=== PATIENT | female | born 1945 | race Caucasian/White ===

== ENCOUNTER 2016-10-22 08:46 | Outpatient (CLI) | payer MEDICARE | END 2016-10-22 08:47 | disposition home or self-care (01) | DX: R11.10 Vomiting, unspecified (principal) ==

== ENCOUNTER 2016-11-05 15:10 | Outpatient (CLI) | payer MEDICARE | END 2016-11-05 15:11 | disposition home or self-care (01) | DX: E87.6 Hypokalemia (principal) ==

== ENCOUNTER 2018-05-01 09:02 | Outpatient (CLI) | payer MEDICARE ==
[2018-05-01 12:08] LABS: ALBUMIN 3.5 g/dL (3.2-5.5); ALBUMIN/GLOBULIN RATIO 1.1 (1.0-2.2); ALKALINE PHOSPHATASE 97 IU/L (42-121); ALT ALANINE AMINOTRANSFERASE 15 IU/L (10-60); AST ASPARTATE AMINOTRANSFERASE 17 IU/L (10-42); BILIRUBIN,TOTAL 0.9 mg/dL (0.2-1.0); BUN - BLOOD UREA NITROGEN 11 mg/dL (6-20); CALCIUM 8.5 mg/dL (8.5-10.3); CARBON DIOXIDE - CO2 24 mmol/L (21-32); CHLORIDE 105 mmol/L (101-111); CHOL/HDL RATIO 2.8 (<4.4); CHOLESTEROL 148 mg/dL; CREATININE 0.7 mg/dL (0.4-1.0); GFR - MDRD 82 (>89); GLUCOSE 109 mg/dL (70-100); HDL CHOLESTEROL 52 mg/dL; LDL CHOLESTEROL,CALCULATED 71 mg/dL; LDL/HDL RATIO 1.4 (<4.4); SODIUM 137 mmol/L (135-145); TOTAL PROTEIN 6.7 g/dL (6.7-8.2); VLDL CHOLESTEROL 25 mg/dL
== END 2018-05-01 09:03 | disposition home or self-care (01) ==
LOC: LAB.F 09:02
PROVIDERS: ATTEND Physician Assistant Medical
DX: E78.5 Hyperlipidemia, unspecified (principal); Z51.81 Encounter for therapeutic drug level monitoring; Z79.899 Other long term (current) drug therapy
CPT/HCPCS: 36415; 80053; 80061; 83721

== ENCOUNTER 2019-01-07 11:19 | Outpatient (CLI) | payer MEDICARE | END 2019-01-07 11:20 | disposition home or self-care (01) | LOC: LAB.R 11:19 | PROVIDERS: ATTEND Physician Assistant Medical | DX: M70.41 Prepatellar bursitis, right knee (principal) | CPT/HCPCS: 87070; 87205 ==

== ENCOUNTER 2019-08-04 17:27 | Outpatient (CLI) | payer MEDICARE | END 2019-08-04 17:28 | disposition critical access hospital (66) | LOC: EMS 17:27 | PROVIDERS: ATTEND Surgery | DX: M54.5 Low back pain (principal); R26.2 Difficulty in walking, not elsewhere classified | CPT/HCPCS: A0425; A0429 ==

== ENCOUNTER 2019-08-04 17:59 | Emergency (ER) | payer MEDICARE ==
[2019-08-04 18:06] VITALS: BP 145/97
--- NOTE | 2019-08-04 18:14 | ED Physician Documentation ---
History of Present Illness - Stated complaint Stated Complaint: ABD PX - Chief complaint Chief Complaint: Back Pain - Additonal information Additional information: This is a 73-year-old female who presents with left back pain. Patient states that she was at a gallery today, and she began developing fairly sudden onset of left-sided back pain radiaing towards her hip toward the front of her abdomen. It has been worsening since then. When she got home she was barely able to move because she was in so much pain so she called an ambulance who brought her here. She cannot find a specific place in her left mid lower back which is tender to palpation. Movement of her left leg also exacerbates the pain. She denies any hematuria or dysuria. No vomiting. She has had chronic back pain but nothing this severe. No weakness or numbness, no changes with bowel movements or urination. Review of Systems Constitutional: denies: Fever Cardiac: denies: Chest pain / pressure Respiratory: denies: Dyspnea GI: denies: Abdominal Pain : denies: Unable to Void Musculoskeletal: reports: Back pain PD PAST MEDICAL HISTORY - Past Medical History Cardiovascular: Arrhythmia Respiratory: None Endocrine/Autoimmune: None GI: GERD : None HEENT: None Psych: None Musculoskeletal: None Derm: None - Past Surgical History Past Surgical History: No - Present Medications Home Medications: Ambulatory Orders Medication Instructions Recorded Confirmed Aspirin [Andrzej Chewable Aspirin] 1 tab PO DAILY 11/29/15 12/05/15 Atenolol 25 mg PO DAILY 11/29/15 12/05/15 raNITIdine [Zantac] 150 mg PO BID 11/29/15 12/05/15 Ibuprofen 600 mg ORAL QPM PRN 12/05/15 12/05/15 Cyclobenzaprine [Flexeril] 10 mg PO TID PRN #20 tablet 08/04/19 Lidocaine Patch 5% [Lidoderm Patch] 1 each TOP DAILY PRN #7 patch 08/04/19 - Allergies Allergies/Adverse Reactions: Allergies Allergy/AdvReac Type Severity Reaction Status Date / Time Penicillins Allergy Unknown Unknown Verified 08/04/19 18:06 asparagus Allergy Anaphylaxis Verified 08/04/19 18:06 Iv contrast dye Allergy Edema Uncoded 12/05/15 11:02 - Social History Does the pt smoke?: No Smoking Status: Never smoker Does the pt drink ETOH?: Yes Does the pt have substance abuse?: No - Immunizations Immunizations are current?: Yes - POLST Patient has POLST: No PD ED PE NORMAL - Vitals Vital signs reviewed: Yes - General General: Alert and oriented X 3 - HEENT HEENT: Atraumatic, PERRL - Neck Neck: Supple, no meningeal sign - Cardiac Cardiac: RRR - Respiratory Respiratory: Clear bilaterally - Abdomen Abdomen: Normal bowel sounds, Soft, Non tender, Other (rotund) - Back Back: Other (There is midline and left paraspinous pain in the region of L3. Movement of the left leg causes severe pain. She is 5 out of 5 strength ankle dorsiflexion and plantarflexion, and is able to flex both hips. Sensation light touch is intact over the bilateral lower extremities.) - Derm Derm: Warm and dry - Extremities Extremities: No deformity - Neuro Neuro: Alert and oriented X 3 - Psych Psych: Normal mood, Normal affect Results - Vitals Vitals: Vital Signs - 24 hr 08/04/19 18:04 Temperature 37.1 C Heart Rate 102 H Respiratory 20 Rate Blood Pressure 145/97 H O2 Saturation 98 Oxygen O2 Source Room air - Labs Labs: Laboratory Tests 08/04/19 08/04/19 08/04/19 18:55 19:03 19:03 WBC 8.9 RBC 5.41 H Hgb 15.2 Hct 47.7 H MCV 88.2 MCH 28.1 MCHC 31.9 L RDW 13.1 Plt Count 211 MPV 10.6 Neut # (Auto) 6.4 Lymph # (Auto) 1.8 [place] # (Auto) 0.6 Eos # (Auto) 0.1 Baso # (Auto) 0.0 Absolute Nucleated RBC 0.00 Nucleated RBC % 0.0 Sodium 141 Potassium 3.5 Chloride 107 Carbon Dioxide 28 Anion Gap 6.0 BUN 13 Creatinine 0.8 Estimated GFR (MDRD) 70 L Glucose 100 Calcium 8.7 Total Bilirubin 0.4 AST 17 ALT 16 Alkaline Phosphatase 99 Total Protein 7.6 Albumin 4.1 Globulin 3.5 Albumin/Globulin Ratio 1.2 Lipase 22 Urine Color YELLOW Urine Clarity CLEAR Urine pH 6.0 Ur Specific [place] 1.010 Urine Protein NEGATIVE Urine Glucose (UA) NEGATIVE Urine Ketones NEGATIVE Urine Occult Blood LARGE H Urine Nitrite NEGATIVE Urine Bilirubin NEGATIVE Urine Urobilinogen 0.2 (NORMAL) Ur Leukocyte Esterase TRACE H Urine RBC 11-25 H Urine WBC 0-3 Ur Squamous Epith Cells RARE Squamous Urine Bacteria None Seen Ur Microscopic Review INDICATED Urine Culture Comments INDICATED - Rads (name of study) CT abd/pelvis WO Radiology: Other (8 mm stone within the right renal pelvis, nonobstructing left intrarenal stone, some scattered calcifications in the lower pole of kidney, and a small fat-containing umbilical hernia. No obvious fractures or acute bony abnormalities.) PD MEDICAL DECISION MAKING - ED course Complexity details: considered differential (Muscle spasm, strain, fracture, renal colic,AAA, UTI) ED course: On exam patient is uncomfortable but nontoxic-appearing, she has no focal neurologic symptoms, and she has reproducible tenderness in the left lower paraspinous region of her back. Patient was given valium for back pain/spasm. CT scan was obtained and shows a number of incidental findings, but no finding that convincingly correlates with her pain. I did discuss the multiple incidental findings with the patient and recommend that she follow-up with her primary care provider on all of these as soon as possible. Her urine shows several red blood cells in it, which is likely a result of the stone seen in her renal pelvis, but this is on the opposite side of her pain. On reevaluation patient is feeling much better, is able to move her legs without back discomfort, and is able to ambulate. I discussed with her that clinically she appears to have a muscle spasm/back pain, and that we should start with supportive care with lidocaine patches, Tylenol and ibuprofen, and Flexeril. If she is having any worsening symptoms such as fever, weakness or numbness in her legs, bowel or bladder changes, or other concerning symptoms she needs to return the emergency department. I also emphasized the importance of close follow-up with her primary care provider. Patient agrees with this plan and was discharged home. Departure - Departure Disposition: 01 Home, Self Care Clinical Impression: Back pain Qualifiers: Back pain location: low back pain Chronicity: acute Back pain laterality: left Sciatica presence: unspecified whether sciatica present Qualified Code(s): M54.5 - Low back pain Condition: Good Instructions: ED Neck Back Pain General Follow-Up: Nohemy Gilbert PA-C [Primary Care Provider] - Within 1 week Prescriptions: Cyclobenzaprine [Flexeril] 10 mg PO TID PRN #20 tablet PRN Reason: Spasms Lidocaine Patch 5% [Lidoderm Patch] 1 each TOP DAILY PRN #7 patch PRN Reason: Pain Comments: You were seen today for back pain, I think this is likely due to some spasming or strain of the muscles in your back. The CT scan did show many incidental findings, please review the CT with your primary care provider in depth. You have 8 mm stone in your right renal pelvis, and a little bit of blood in your urine that is probably from the stone. You also have some calcifications in the right kidney, and the radiologist recommends that you have an imaging study to further evaluate this. You also have a small umbilical hernia. I do not think that any of these findings is the cause of your pain today. You may take Tylenol, ibuprofen, and Flexeril for your pain, and try the lidocaine patches as well. Avoid any straining or lifting movements over the next several days until your back pain is improving. If you are developing any bowel or bladder issues, weakness or numbness in your legs, or other concerning symptoms please return to the emergency department Discharge Date/Time: 08/04/19 21:04
[2019-08-04] MEDS ORDERED: diazePAM 5 MG TABLET PO STA (18:48)
[2019-08-04 19:11] LABS: BASOPHILS % (AUTO) 0.4 %; EOSINOPHILS # (AUTO) 0.1 10^3/uL (0.0-0.7); EOSINOPHILS % (AUTO) 0.8 %; HGB - HEMOGLOBIN 15.2 g/dL (12.0-16.0); LYMPHOCYTES # (AUTO) 1.8 10^3/uL (1.5-3.5); LYMPHOCYTES % (AUTO) 20.2 %; MEAN CORPUSCULAR HEMOGLOBIN 28.1 pg (27.0-31.0); MEAN CORPUSCULAR HGB CONC 31.9 g/dL (32.0-36.0); MEAN CORPUSCULAR VOLUME 88.2 fL (81.0-99.0); MEAN PLATELET VOLUME 10.6 fL (7.9-10.8); MONOCYTES # (AUTO) 0.6 10^3/uL (0.0-1.0); MONOCYTES % (AUTO) 6.6 %; NEUTROPHILS # (AUTO) 6.4 10^3/uL (1.5-6.6); NEUTROPHILS % (AUTO) 71.7 %; PLT - PLATELET COUNT 211 10^3/uL (130-450); RED BLOOD COUNT 5.41 10^6/uL (4.20-5.40); RED CELL DISTRIBUTION WIDTH 13.1 % (12.0-15.0); WHITE BLOOD COUNT 8.9 x10^3/uL (4.8-10.8)
[2019-08-04 19:17] LABS: BILIRUBIN,URINE NEGATIVE (NEGATIVE); GLUCOSE, URINE (UA) NEGATIVE (NEGATIVE); KETONES,URINE (UA) NEGATIVE (NEGATIVE); LEUKOCYTE ESTERASE, URINE TRACE (NEGATIVE); NITRITE,URINE NEGATIVE (NEGATIVE); OCCULT BLOOD,URINE LARGE (NEGATIVE); PROTEIN,URINE NEGATIVE (NEGATIVE); UROBILINOGEN,URINE 0.2 (NORMAL) E.U./dL (NORMAL)
[2019-08-04 19:19] LABS: CLARITY,URINE CLEAR (CLEAR)
[2019-08-04 19:22] LABS: ALBUMIN 4.1 g/dL (3.2-5.5); ALBUMIN/GLOBULIN RATIO 1.2 (1.0-2.2); BILIRUBIN,TOTAL 0.4 mg/dL (0.2-1.0); CALCIUM 8.7 mg/dL (8.5-10.3); CREATININE 0.8 mg/dL (0.4-1.0); TOTAL PROTEIN 7.6 g/dL (6.7-8.2)
[2019-08-04 19:35] LABS: BACTERIA,URINE None Seen /HPF (None Seen); SQUAMOUS EPITHELIAL CELL,UR RARE Squamous (<= Few)
--- NOTE | 2019-08-04 19:55 | CT Report ---
Reason: L back and flank pain radiating towards hip Procedure Date: 08/04/2019 Accession Number: [id number] / [id number] Procedure: CT - Abdomen/Pelvis WO CPT Code: FULL RESULT: EXAM: CT ABDOMEN AND PELVIS (CT KUB) WITHOUT CONTRAST. EXAM DATE: 08/04/2019 07:26 PM. CLINICAL HISTORY: Left back and flank pain radiating towards hip. COMPARISONS: ABDOMEN COMPLETE 08/20/2016 7:45 AM. TECHNIQUE: Routine axial helical CT imaging was performed through the abdomen and pelvis without IV contrast. Reconstructions: Coronal and sagittal. In accordance with CT protocol optimization, one or more of the following dose reduction techniques were utilized for this exam: automated exposure control, adjustment of mA and/or KV based on patient size, or use of iterative reconstructive technique. FINDINGS: Lung Bases: Unremarkable. Right Kidney/Ureter: There is an 8 x 8 mm stone in the renal pelvis with mild pelviectasis and parapelvic stranding. No additional stones seen. There is a cluster of speckled parenchymal calcifications at the lower pole of the right kidney. Left Kidney/Ureter: There is a 6 mm calyceal stone at the lower pole of left kidney. Cortical defect at the mid aspect of the kidney with coarse subcapsular calcifications. No hydronephrosis. Other Solid Organs: Noncontrast images of the solid organs are grossly unremarkable. Gallbladder/Bile Ducts: Unremarkable. Peritoneal Cavity: There is a small, fat-containing umbilical hernia. No bowel obstruction. No free air or fluid collections. Scattered diverticula seen without diverticulitis. The appendix is normal. Pelvic Organs: Enlarged uterus with lobulated margins compatible with fibroids. The urinary bladder is unremarkable. No pelvic fluid collections. Vasculature: Unremarkable. Other: None. IMPRESSION: 1. There is an 8 mm stone within the right renal pelvis resulting in mild pelviectasis. 2. Nonobstructing left intrarenal stone. 3. Cluster of speckled parenchymal calcifications at the lower pole of the right kidney, atypical in appearance for stones. Consider further characterization with contrast-enhanced renal CT to exclude mass. There are additional coarse subcapsular calcifications on the left which may be related to remote infection or trauma. 4. Scattered diverticula without diverticulitis. 5. Fibroid uterus. 6. Small fat-containing umbilical hernia. RADIA
[2019-08-04] MEDS ORDERED: ACETAMINOPHEN 325 MG TABLET PO STA (20:30)
[2019-08-04] MEDS ORDERED: IBUPROFEN 600 MG TABLET PO STA (20:30)
[2019-08-04] MEDS ORDERED: LIDOCAINE PATCH 5% TOP STA (20:30)
== END 2019-08-04 21:04 | disposition home or self-care (01) ==
LOC: EDUNIT# → ED 17:59
DX: M54.5 Low back pain (principal); N20.0 Calculus of kidney; N28.89 Other specified disorders of kidney and ureter; K42.9 Umbilical hernia without obstruction or gangrene; D25.9 Leiomyoma of uterus, unspecified; Z79.82 Long term (current) use of aspirin
CPT/HCPCS: 36415; 74176; 80053; 81001; 83690; 85025; 87086; 99283; 99284; A9270; 81003

== ENCOUNTER 2021-05-25 11:32 | Emergency (ER) | payer MEDICARE ==
[2021-05-25 11:45] VITALS: BP 148/94
[2021-05-25] MEDS ORDERED: PROPARACAINE 0.5% OPHTH DROPS 15 ML EACHEYE STA (12:13)
--- NOTE | 2021-05-25 12:36 | ED Physician Documentation ---
PD HPI OPHTHO - Stated complaint Stated Complaint: L EYE PX - Chief complaint Chief Complaint: Heent - History obtained from History obtained from: Patient - History of Present Illness Timing - onset: Last night Timing - duration: Days (1) Timing - details: Gradual onset Pain level max: 6 Pain level now: 6 Location: Left Associated symptoms: Redness, Swelling Contributing factors: Wears glasses. No: Wears contacts - Additional information Additional information: Patient is a 75-year-old female who presents to the emergency department after her cat jumped on her face last night, pushed off scratching her left thigh. States increased pain redness and swelling this morning. Does not wear contacts. Does wear glasses. unknown last Td. Review of Systems Constitutional: denies: Fever, Chills GI: denies: Vomiting Skin: denies: Rash Musculoskeletal: denies: Neck pain, Back pain PD PAST MEDICAL HISTORY - Past Medical History Past Medical History: Yes Cardiovascular: Arrhythmia Respiratory: None Endocrine/Autoimmune: None GI: GERD : None HEENT: None Psych: None Musculoskeletal: None Derm: None - Past Surgical History Past Surgical History: No - Present Medications Home Medications: Ambulatory Orders Medication Instructions Recorded Confirmed Aspirin [Andrzej Chewable Aspirin] 1 tab PO DAILY 11/29/15 12/05/15 atenoloL [Atenolol] 25 mg PO DAILY 11/29/15 12/05/15 raNITIdine [Zantac] 150 mg PO BID 11/29/15 12/05/15 Ibuprofen 600 mg ORAL QPM PRN 12/05/15 12/05/15 Cyclobenzaprine [Flexeril] 10 mg PO TID PRN #20 tablet 08/04/19 Lidocaine Patch 5% [Lidoderm Patch] 1 each TOP DAILY PRN #7 patch 08/04/19 Ofloxacin 0.3% Ophth Drops 2 drops LEFTEYE Q4H 7 Days #5 ml 05/25/21 [Ocuflox 0.3% Ophth Drops] - Allergies Allergies/Adverse Reactions: Allergies Allergy/AdvReac Type Severity Reaction Status Date / Time Penicillins Allergy Unknown Unknown Verified 05/25/21 11:45 asparagus Allergy Anaphylaxis Verified 05/25/21 11:45 Iv contrast dye Allergy Edema Uncoded 05/25/21 11:45 - Social History Does the pt smoke?: No Smoking Status: Never smoker Does the pt drink ETOH?: Yes Does the pt have substance abuse?: No - Immunizations Immunizations are current?: Yes - POLST Patient has POLST: No PD ED PE NORMAL - Vitals Vital signs reviewed: Yes - General General: Alert and oriented X 3, No acute distress - HEENT HEENT: Moist mucous membranes, Other (Left eye - conjunctiva injection, fluorescein uptake on the lower half of the sclera. Nothing over the cornea. Negative Danielle sign. Eyelids everted and normal. Right eye normal.) - Neck Neck: Supple, no meningeal sign - Cardiac Cardiac: RRR - Respiratory Respiratory: No respiratory distress, Clear bilaterally Results - Vitals Vitals: Vital Signs - 24 hr 05/25/21 11:42 Temperature 36.0 C L Heart Rate 85 Respiratory 16 Rate Blood Pressure 148/94 H O2 Saturation 98 Oxygen O2 Source Room air PD MEDICAL DECISION MAKING - ED course Complexity details: considered differential, d/w patient ED course: 75-year-old female with left eye scleral abrasion. We will place on Ocuflox. We will have her follow-up with ophthalmology for further care. No evidence of globe rupture. Negative Danielle's sign. Patient counseled regarding signs and symptoms for which I believe and urgent re-evaluation would be necessary. Patie nt with good understanding of and agreement to plan and is comfortable going home at this time This document was made in part using voice recognition software. While efforts are made to proofread this document, sound alike and grammatical errors may occur. normal vision tdap given Departure - Departure Disposition: 01 Home, Self Care Clinical Impression: Corneal abrasion, left Qualifiers: Encounter type: initial encounter Qualified Code(s): S05.02XA - Injury of conjunctiva and corneal abrasion without foreign body, left eye, initial encounter Condition: Good Instructions: ED Eye Injury Corneal Abrasion Follow-Up: Avni Alcaraz MD [Provider Admit Priv/Credential] - Within 3 Days Prescriptions: Ofloxacin 0.3% Ophth Drops [Ocuflox 0.3% Ophth Drops] 2 drops LEFTEYE Q4H 7 Days #5 ml Comments: Your prescription was sent to [facility] in [place]. Use the drops as prescribed. Make sure you follow-up with ophthalmology in approximately 3 days for repeat evaluation. Return sooner if you worsen.
[2021-05-25] MEDS ORDERED: TETANUS/DIPHTHERIA/PERTUSSIS 0.5 ML SYRINGE IM ONE (12:37)
== END 2021-05-25 12:57 | disposition home or self-care (01) ==
LOC: ED 11:32
DX: S05.02XA Injury of conjunctiva and corneal abrasion without foreign body, left eye, initial encounter (principal); S70.312A Abrasion, left thigh, initial encounter; W55.03XA Scratched by cat, initial encounter; Z23 Encounter for immunization
CPT/HCPCS: 90471; 90715; 99283; 99284; J3490

== ENCOUNTER 2021-07-19 11:31 | Outpatient (CLI) | payer MEDICARE ==
[2021-07-19 14:43] LABS: BASOPHILS % (AUTO) 0.4 %; EOSINOPHILS # (AUTO) 0.1 10^3/uL (0.0-0.7); EOSINOPHILS % (AUTO) 2.5 %; HCT - HEMATOCRIT 45.3 % (37.0-47.0); HGB - HEMOGLOBIN 14.3 g/dL (12.0-16.0); LYMPHOCYTES # (AUTO) 1.7 10^3/uL (1.5-3.5); LYMPHOCYTES % (AUTO) 30.2 %; MEAN CORPUSCULAR HGB CONC 31.6 g/dL (32.0-36.0); MEAN CORPUSCULAR VOLUME 88.8 fL (81.0-99.0); MEAN PLATELET VOLUME 10.8 fL (7.9-10.8); MONOCYTES # (AUTO) 0.3 10^3/uL (0.0-1.0); MONOCYTES % (AUTO) 5.5 %; NEUTROPHILS # (AUTO) 3.4 10^3/uL (1.5-6.6); NEUTROPHILS % (AUTO) 61.2 %; PLT - PLATELET COUNT 236 10^3/uL (130-450); RED CELL DISTRIBUTION WIDTH 12.8 % (12.0-15.0); WHITE BLOOD COUNT 5.6 x10^3/uL (4.8-10.8)
[2021-07-19 15:19] LABS: ALBUMIN 3.7 g/dL (3.2-5.5); ALBUMIN/GLOBULIN RATIO 1.2 (1.0-2.2); ALKALINE PHOSPHATASE 93 IU/L (42-121); ALT ALANINE AMINOTRANSFERASE 14 IU/L (10-60); AST ASPARTATE AMINOTRANSFERASE 17 IU/L (10-42); BILIRUBIN,TOTAL 0.6 mg/dL (0.2-1.0); BUN - BLOOD UREA NITROGEN 17 mg/dL (6-20); CALCIUM 9.1 mg/dL (8.5-10.3); CARBON DIOXIDE - CO2 24 mmol/L (21-32); CHLORIDE 106 mmol/L (101-111); CHOL/HDL RATIO 4.2 (<4.4); CHOLESTEROL 208 mg/dL; CREATININE 0.8 mg/dL (0.4-1.0); GFR - MDRD 70 (>89); GLUCOSE 104 mg/dL (70-100); HDL CHOLESTEROL 50 mg/dL; LDL CHOLESTEROL,CALCULATED 133 mg/dL; LDL/HDL RATIO 2.7 (<4.4); POTASSIUM 4.1 mmol/L (3.5-5.0); SODIUM 138 mmol/L (135-145); TOTAL PROTEIN 6.9 g/dL (6.7-8.2); TRIGLYCERIDES 125 mg/dL; VLDL CHOLESTEROL 25 mg/dL
== END 2021-07-19 11:32 | disposition home or self-care (01) ==
LOC: LAB.S 11:31
PROVIDERS: ATTEND Registered Nurse
DX: R60.0 Localized edema (principal); E78.5 Hyperlipidemia, unspecified; K21.9 Gastro-esophageal reflux disease without esophagitis; E66.9 Obesity, unspecified; I48.0 Paroxysmal atrial fibrillation
CPT/HCPCS: 36415; 80053; 80061; 83721; 84443; 85025